=== PATIENT | male | born 1930 | race Caucasian/White ===

== ENCOUNTER 2021-12-28 08:01 | Emergency (ER) | payer MEDICARE, OTHER ==
[~2021-12-28] VITALS: Ht 175.3 cm; Wt 68.0 kg
--- NOTE | 2021-12-28 08:25 | NUR ---
[id number] HOE, C/O LOWER BACK AND R BIG TOE PAIN S/P GLF "TRIP ON A CORD". PLACED ON BED, CHANGED TO GOWN, NOT IN DISTRESS IN PAIN WITH DIZZINESS.
--- NOTE | 2021-12-28 08:27 | NUR ---
ON BED SIDE
[2021-12-28] MEDS ORDERED: LIDOCAINE 5% (PATCH) 1 EA PATCH TP SCH (08:30)
[2021-12-28] MEDS ORDERED: ACETAMINOPHEN 325 MG TABLET PO ONE (08:30)
[2021-12-28] MEDS ORDERED: ACETAMINOPHEN 325 MG TABLET ONE ×2 (08:31→08:39)
--- NOTE | 2021-12-28 08:53 | NUR ---
PATIENT BROUGHT TO X-RAY DEPT.
[2021-12-28] MEDS ORDERED: ACET325T53 PO (11:10)
--- NOTE | 2021-12-28 11:30 | NUR ---
CALLED [facility] AND SET UP BLS TRANSPORT ETA 1235
--- NOTE | 2021-12-28 13:05 | NUR ---
PATIENT DISCHARGE [employer] BY [facility]BUL[facility]
[2021-12-28 13:08] VITALS: BP 140/70
== END 2021-12-28 13:12 | disposition home or self-care (01) ==
LOC: ER 08:03
DX: S39.82XA Other specified injuries of lower back, initial encounter (principal); M79.674 Pain in right toe(s); W18.09XA Striking against other object with subsequent fall, initial encounter; Y93.89 Activity, other specified; Y92.89 Other specified places as the place of occurrence of the external cause; Y99.8 Other external cause status
CPT/HCPCS: 72131-TC; 73660-TC